=== PATIENT | female | born 1940 | race Caucasian/White ===

== ENCOUNTER 2017-02-02 08:35 | Day surgery (SDC) | payer MEDICARE ==
--- NOTE | 2017-02-02 12:04 | Operative Note ---
Colonoscopy Procedure date: 02/02/17 Date of : 44 Procedure:Colonoscopy WITH POLYPECTOMY AND BIOPSY Indications: h/o polyp, diarrhea Performing Provider: Damon Kuhn Referrring Provider: Tyler Sedation: Midazolam 11mg, fentanyl 200 mg Procedure: Prior to the procedure, a history and physical exam was performed, and patient medications and allergies were reviewed. The risks and benefits of the procedure and the sedation options and risks were discussed with the patient. All questions were answered and informed consent was obtained. The patient was brought to the procedure room. Patient identification and proposed procedure were verified by the physician and the nurse. The patient was placed in a left lateral decubitus position and the scope was passed under direct vision. Throughout the procedure, the patient's blood pressure, pulse, and oxygen saturations were monitored continuously. The colonoscope was introduced through the anus and advanced to the terminal ileum with identification of the appendiceal orifice and ileocecal valve. The colonoscopy was performed without difficulty. The patient tolerated the procedure well. The quality of the bowel preparation was fair in the sigmoid - excessive irrogation was used. Findings: 1) Flat .9cm polyp in the ascending colon was removed with hot snare after hetastarch/methylene blue (9:1) injection x 2 and retrieved completely. A single hemoclip was placed to prevent bleeding. 2) Diverticulosis (moderate) was seen in the left colon. 3) Normal TI and remaining colon - random biopsies done the colon (entire) for evaluation of lymphocyctic colitis. Immediate complications: None EBL (ml): 2 Impression: 1) Flat .9cm polyp in the ascending colon - likely sessile serrated adenoma - removed with hot snare and retrieved completely. 2) Diverticulosis (moderate) was seen in the left colon. 3) Normal TI and remaining colon - random biopsies done the colon (entire) for evaluation of lymphocyctic colitis. Recommendations: 1) f/u pathology - Repeat in 3-5yr depending on pathology 2) Consider entocort 6-9mg/d (may use chronically) to control diarrhea assoc with lymphocytic colitis. 3) Avoid diet high in nuts (diverticulosis). . at 1204
[2017-02-02 12:58] VITALS: BP 130/72
== END 2017-02-02 12:50 | disposition home or self-care (01) ==
LOC: SDC 08:35
PROVIDERS: Internal Medicine Gastroenterology
PROC: 0DBK8ZX Excision of Ascending Colon, Via Natural or Artificial Opening Endoscopic, Diagnostic (ICD-10-PCS; principal; 2017-02-02 13:00)
DX: K63.5 Polyp of colon (principal); K57.30 Diverticulosis of large intestine without perforation or abscess without bleeding; Z86.010 Personal history of colon polyps